=== PATIENT | male | born 1990 | race Caucasian/White ===

== ENCOUNTER 2021-02-16 20:36 | Emergency (ER) | payer SELFPAY ==
[~2021-02-16] VITALS: Ht 175.3 cm; Wt 65.0 kg
[2021-02-16] MEDS ORDERED: normal saline 1000ml 1,000 ML IV ONE (20:55)
[2021-02-16 21:29] LABS: ANION GAP 13 (8-16); BLOOD UREA NITROGEN 21 MG/DL (7-18); CALCIUM 8.6 MG/DL (8.5-10.1); CHLORIDE 101 MMOL/L (99-107); CREATININE 0.84 MG/DL (0.60-1.10); GLUCOSE 146 MG/DL (70-104); POTASSIUM 3.4 MMOL/L (3.5-5.1); SODIUM 140 MMOL/L (135-145); TOTAL CARBON DIOXIDE 26.5 MMOL/L (24-32); eGFR > 90 ML/MIN
[2021-02-16] MEDS ORDERED: potassium Cl 20 mEq SR tablet PO STA (21:48)
[2021-02-16] MEDS ORDERED: NALO4SPR BOTHNARES (23:04)
[2021-02-16 23:41] VITALS: BP 108/79
--- NOTE | 2021-02-17 00:14 | NUR ---
DR. ROWELL AT BEDSIDE ASSESSED PATIENT FOR DISCHARGE, PATIENT WAS AOX4 AND OBSERVED AMBULATING WITH A STEADY GAIT UPON DISCHARGE FROM THE ED
== END 2021-02-17 00:31 | disposition home or self-care (01) ==
LOC: ER 20:37
DX: T50.7X1A Poisoning by analeptics and opioid receptor antagonists, accidental (unintentional), initial encounter (principal); T40.411A Poisoning by fentanyl or fentanyl analogs, accidental (unintentional), initial encounter; R00.0 Tachycardia, unspecified; Z79.899 Other long term (current) drug therapy; Y92.89 Other specified places as the place of occurrence of the external cause
CPT/HCPCS: 36415; 71045; 80048; 82948; 96360; 99284; J7030